=== PATIENT | female | born 1975 ===

== ENCOUNTER 2017-09-29 10:45 | Outpatient (REF) | payer BC, SELFPAY ==
[2017-09-29 20:32] LABS: Cholesterol 207 mg/dL (50-200); Glucose 95 mg/dL (70-100); HDL Cholesterol 52 mg/dL (40-60); LDL CHOLESTEROL 133 mg/dL (<100); TSH (W/Ref FT4) 3.14 uIU/mL (0.358-3.74); Triglyceride 163 mg/dL (30-150)
== END 2017-09-29 10:46 ==
LOC: LBN 10:45
PROVIDERS: PCP Internal Medicine; Visit Provider Internal Medicine
DX: E03.9 Hypothyroidism, unspecified (principal); E78.00 Pure hypercholesterolemia, unspecified; Z13.1 Encounter for screening for diabetes mellitus
CPT/HCPCS: 80061; 82947; 83721; 84443